=== PATIENT | male | born 1990 | race Caucasian/White ===

== ENCOUNTER 2017-05-29 22:12 | Emergency (ER) | payer SELFPAY ==
[~2017-05-29] VITALS: Ht 175.3 cm; Wt 82.1 kg
[2017-05-29 22:53] VITALS: Ht 175.3 cm; Wt 82.1 kg
== END 2017-05-30 00:25 | disposition left against medical advice (07) ==
LOC: FTE 22:12
DX: Z53.21 Procedure and treatment not carried out due to patient leaving prior to being seen by health care provider (principal)